=== PATIENT | female | born 1995 | race Caucasian/White ===

== ENCOUNTER 2021-06-04 10:25 | Observation (INO) | payer OTHER, SELFPAY ==
[~2021-06-04] VITALS: Ht 157.5 cm; Wt 71.7 kg
[2021-06-04] MEDS ORDERED: PRETAB PO (10:59)
[2021-06-04 11:13] VITALS: BP 132/85
[2021-06-04 12:20] LABS: BASOPHILS % (AUTO) 0.4 % (0.0-2.0); EOSINOPHILS % (AUTO) 0.4 % (0.0-4.0); HEMATOCRIT 34.5 % (36-48); HEMOGLOBIN 11.6 g/dL (12.0-16.0); LYMPHOCYTES # (AUTO) 1.2 K/uL (2.5-16.5); MEAN CORPUSCULAR HEMOGLOBIN 29 pg (27-31); MEAN CORPUSCULAR HGB CONC 34 g/dL (33-37); MONOCYTES # (AUTO) 0.6 K/uL (0.8-1.0); MONOCYTES % (AUTO) 7.2 % (1.7-9.3); NEUTROPHILS # (AUTO) 6.1 K/uL (1.8-7.7); PLATELET COUNT (AUTO) 190 K/uL (140-450); RED BLOOD CELL COUNT(AUTO) 4.06 MIL/uL (4.20-5.40); RED CELL DISTRIBUTION WIDTH 15.3 % (11.6-13.7); WHITE BLOOD COUNT (AUTO) 7.9 K/uL (4.8-10.8)
[2021-06-04 13:01] LABS: ALBUMIN 2.9 g/dL (3.4-5.0); ANION GAP 17.4 (8-16); CARBON DIOXIDE 20.3 mmol/L (21-32); CREATININE 0.4 mg/dL (0.6-1.3); POTASSIUM 3.7 mmol/L (3.5-5.1); TOTAL BILIRUBIN 0.2 mg/dL (0.0-1.0)
[2021-06-04 13:02] LABS: PROTHROMBIN TIME 9.1 secs (10.8-13.4)
[2021-06-04 13:14] LABS: APPEARANCE,URINE CLEAR (CLEAR); BILIRUBIN,URINE NEGATIVE (NEGATIVE); BLOOD, URINE NEGATIVE (NEGATIVE); COLOR,URINE YELLOW (YELLOW); LEUKOCYTE ESTERASE ,URINE NEGATIVE (NEGATIVE); NITRITE, URINE NEGATIVE (NEGATIVE); PH,URINE 7.5 (5.0-9.0); UGLUCOSE NEGATIVE (NEGATIVE)
[2021-06-04] MEDS ORDERED: LACTATED RINGERS 1,000 ML IV SCH (13:25)
[2021-06-04] MEDS ORDERED: BETAMETH ACET/BETAMETH NA PH 30 MG/5 ML VIAL IM SCH (13:25)
[2021-06-04 13:48] LABS: URINE TOTAL PROTEIN 8.6 mg/dL (0-12)
== END 2021-06-04 16:00 | disposition home or self-care (01) ==
LOC: MLD 10:25
PROVIDERS: ADMIT Obstetrics & Gynecology; ATTEND Obstetrics & Gynecology
DX: O26.893 Other specified pregnancy related conditions, third trimester (principal); R03.0 Elevated blood-pressure reading, without diagnosis of hypertension; Z20.822 Contact with and (suspected) exposure to COVID-19; Z3A.38 38 weeks gestation of pregnancy
CPT/HCPCS: 36415; 59025; 76819; 80053; 81003; 82570; 84550; 85025; 85384; 85610; 85730; 86886; 86900; 86901; 96360; 96372; G0378; J0702; Q0092

== ENCOUNTER 2021-06-05 13:53 | Observation (INO) | payer OTHER, SELFPAY ==
[~2021-06-05] VITALS: Ht 157.5 cm; Wt 71.7 kg
[~2021-06-05 13:53] MED LIST: PRETAB PO
[2021-06-05 14:10] VITALS: BP 119/77
[2021-06-05] MEDS ORDERED: BETAMETH ACET/BETAMETH NA PH 30 MG/5 ML VIAL IM SCH (14:12)
[2021-06-06] MEDS ORDERED: FERR-252 PO (06:17)
== END 2021-06-05 15:40 | disposition home or self-care (01) ==
LOC: MLD 13:53
PROVIDERS: ADMIT Obstetrics & Gynecology; ATTEND Obstetrics & Gynecology
DX: O26.893 Other specified pregnancy related conditions, third trimester (principal); R03.0 Elevated blood-pressure reading, without diagnosis of hypertension; Z3A.37 37 weeks gestation of pregnancy
CPT/HCPCS: 59025; 96372; G0378; G0379; J0702; J7120

== ENCOUNTER 2021-06-06 05:10 | Inpatient (IN) | payer OTHER, SELFPAY ==
[~2021-06-06] VITALS: Ht 157.5 cm; Wt 71.7 kg
[2021-06-06] MEDS ORDERED: LACTATED RINGERS 1,000 ML IV SCH (06:15)
[2021-06-06] MEDS ORDERED: CARBOPROST 250 MCG/ML AMP IM PRN (06:15)
[2021-06-06] MEDS ORDERED: FERR-252 PO (06:17)
[2021-06-06] MEDS ORDERED: METHYLERGONOVINE 0.2 MG/ML AMP IM PRN ×2 (06:25→10:25)
[2021-06-06 07:19] LABS: APPEARANCE,URINE CLEAR (CLEAR); BILIRUBIN,URINE NEGATIVE (NEGATIVE); BLOOD, URINE NEGATIVE (NEGATIVE); COLOR,URINE YELLOW (YELLOW); LEUKOCYTE ESTERASE ,URINE NEGATIVE (NEGATIVE); NITRITE, URINE NEGATIVE (NEGATIVE); PH,URINE 7.5 (5.0-9.0); UGLUCOSE NEGATIVE (NEGATIVE)
[2021-06-06] MEDS ORDERED: OXYTOCIN 20 UNITS/LR PREMIX 1,000 ML IV ONE (07:58)
[2021-06-06] MEDS ORDERED: fentaNYL citrate 0.05 MG/ML VIAL ONE (08:06)
[2021-06-06] MEDS ORDERED: MIDAZOLAM 2 MG/2 ML VIAL ONE (08:06)
[2021-06-06] MEDS ORDERED: MEPERIDINE 50 MG/ML SYR ONE ×2 (08:06→08:07)
[2021-06-06] MEDS ORDERED: ceFAZolin 1,000 MG VIAL ONE ×2 (08:16)
[2021-06-06 08:51] LABS: RBC,URINE NONE SEEN /HPF (0-5); URINE AMORPHOUS URATE 1+ /HPF (None Seen); WBC,URINE 0-5 /HPF (0-5)
--- NOTE | 2021-06-06 08:52 | NUR ---
BABY GIRL ARRIVED CRYING SPONTANEOUSLY - NO RESPIRATORY DISTRESS NOTED - MOVING ALL EXTREMITIES, PINK WITH GOOD MOVEMENTS - AFTER DRYING BABY AND ASSESSMENT - RN AT BEDSIDE DISCHARGED THE RESPIRATORY STAFF. NO FURTHER INTERVENTION WAS NEEDED
[2021-06-06] MEDS ORDERED: ONDANSETRON 4 MG/2 ML VIAL IVP PRN (09:15)
[2021-06-06] MEDS ORDERED: OXYTOCIN 20 UNITS in LACTATED RINGERS 1,000 ML IV SCH (09:15)
[2021-06-06] MEDS ORDERED: HYDROmorphone 1 MG/ML AMP IVP PRN (09:15)
[2021-06-06] MEDS ORDERED: diphenhydrAMINE 50 MG/ML VIAL IVP PRN (09:15)
[2021-06-06] MEDS ORDERED: MEPERIDINE 25 MG/ML SYR IVP PRN (09:15)
[2021-06-06] MEDS ORDERED: oxyCODONE/APAP 5/325 MG 1 TAB TAB PO PRN (10:25)
[2021-06-06] MEDS ORDERED: PROMETHAZINE 25 MG/ML VIAL IVP PRN (10:25)
[2021-06-06] MEDS ORDERED: MEASLES, MUMPS, AND RUBELLA 1 VIAL SQVAC ONE (10:25)
[2021-06-06] MEDS: OXYTOCIN 20 UNITS in LACTATED RINGERS 1,000 ML IV SCH ×2 (12:16→20:29)
[2021-06-06] MEDS: KETOROLAC 30 MG/ML VIAL IVP PRN (18:54)
[2021-06-06 19:45] LABS: OTHER CASTS, URINE None Seen /LPF (None Seen)
[2021-06-07] MEDS: KETOROLAC 30 MG/ML VIAL IVP PRN ×2 (02:38→07:34)
[2021-06-07] MEDS ORDERED: OXYTOCIN 20 UNITS/LR PREMIX 1,000 ML IV ONE (04:13)
[2021-06-07] MEDS: OXYTOCIN 20 UNITS in LACTATED RINGERS 1,000 ML IV SCH (04:18)
[2021-06-07 06:48] LABS: BASOPHILS % (AUTO) 0.1 % (0.0-2.0); EOSINOPHILS % (AUTO) 0.1 % (0.0-4.0); HEMATOCRIT 32.5 % (36-48); HEMOGLOBIN 10.8 g/dL (12.0-16.0); LYMPHOCYTES # (AUTO) 1.6 K/uL (2.5-16.5); LYMPHOCYTES % (AUTO) 12.1 % (20.5-51.1); MEAN CORPUSCULAR HEMOGLOBIN 28 pg (27-31); MEAN CORPUSCULAR HGB CONC 33 g/dL (33-37); MEAN CORPUSCULAR VOLUME 85.1 fL (80-94); MONOCYTES # (AUTO) 1.1 K/uL (0.8-1.0); MONOCYTES % (AUTO) 8.4 % (1.7-9.3); NEUTROPHILS # (AUTO) 10.7 K/uL (1.8-7.7); NEUTROPHILS % (AUTO) 79.3 % (42.2-75.2); PLATELET COUNT (AUTO) 187 K/uL (140-450); RED BLOOD CELL COUNT(AUTO) 3.82 MIL/uL (4.20-5.40); RED CELL DISTRIBUTION WIDTH 15.5 % (11.6-13.7); WHITE BLOOD COUNT (AUTO) 13.5 K/uL (4.8-10.8)
[2021-06-07] MEDS: bisacodyL 10 MG SUPP RC SCH (08:03)
--- NOTE | 2021-06-07 11:02 | NUR ---
PATIENT HAS BEEN SCREENED AND CATEGORIZED LOW NUTRITION RISK. PATIENT WILL BE SEEN WITHIN 7 DAYS OF ADMISSION. 06/12/[address]
[2021-06-08] MEDS ORDERED: CAMERA MC ONE ×2 (03:49→19:34)
[2021-06-08] MEDS: bisacodyL 10 MG SUPP RC SCH (09:15)
[2021-06-08] MEDS ORDERED: bisacodyL 5 MG TABEC PO SCH (13:50)
[2021-06-08] MEDS ORDERED: POLYETHYLENE GLYCOL 17 GM/PKT PO SCH (14:00)
== END 2021-06-09 12:40 | disposition home or self-care (01) | DRG 540 ==
LOC: MLD 05:10 → MFCC 09:26
PROVIDERS: ADMIT Obstetrics & Gynecology; ATTEND Obstetrics & Gynecology
PROC: 10D00Z1 Extraction of Products of Conception, Low, Open Approach (ICD-10-PCS; principal; 2021-06-06)
DX: O14.94 Unspecified pre-eclampsia, complicating childbirth (principal); D62 Acute posthemorrhagic anemia; K59.00 Constipation, unspecified; O69.81X0 Labor and delivery complicated by cord around neck, without compression, not applicable or unspecified; Z20.822 Contact with and (suspected) exposure to COVID-19; Z37.0 Single live birth; Z3A.37 37 weeks gestation of pregnancy; Z98.2 Presence of cerebrospinal fluid drainage device; O90.89 Other complications of the puerperium, not elsewhere classified
CPT/HCPCS: 36415; 51702; 81001; 85025; 86592; J0690; J1885; J2175; J2250; J2590; J3010; J7060; J7120